=== PATIENT | female | born 1940 | race Caucasian/White ===

== ENCOUNTER 2019-04-06 17:46 | Emergency (ER) | payer MEDICARE, MEDICAID ==
[~2019-04-06] VITALS: Ht 152 cm; Wt 59.0 kg
--- NOTE | 2019-04-06 18:02 | ED Fall/Injury ---
General Stated Complaint: FALL Source: patient, EMS Exam Limitations: no limitations History of Present Illness Date Seen by Provider: Apr 06, 2019 Time Seen by Provider: 18:00 Initial Comments To ER per EMS from the [facility] with reports of a fall and subsequent left shoulder elbow and knee pain. She did not hit her head denies any neck pain, denies any chest abdomen or pelvis pain. She has pain in the left shoulder, skin tear over the left elbow and abrasion with swelling to the left knee. She is from [facility], has hemodialysis Thursday Occurred: just prior to arrival Severity: moderate Injuries/Pain Location: upper extremity, lower extremity Context: slipped Loss of Consciousness: no loss of consciousness Associated Symptoms (Fall): Headache Allergies and Home Medications Allergies Coded Allergies: No Known Drug Allergies (Unverified , 04/06/19) Patient Home Medication List Home Medication List Reviewed: Yes Review of Systems Review of Systems Constitutional: see HPI Eyes: No Symptoms Reported Ears, Nose, Mouth, Throat: no symptoms reported Respiratory: no symptoms reported Cardiovascular: no symptoms reported Genitourinary: no symptoms reported Musculoskeletal: see HPI Skin: see HPI Past Ifnfzgi-Zzmxqf-Xttqug Hx Patient Social History Recent Foreign Travel: No Contact w/Someone Who Travel: No Physical Exam Vital Signs Vital Signs - First Documented 04/06/19 17:47 Temp 36.9 Pulse 67 Resp 18 B/P (MAP) 119/58 (78) Pulse Ox 97 Capillary Refill : Height, Weight, BMI Height: '" Weight: lbs. oz. kg; BMI Method: General Appearance: WD/WN, no apparent distress HEENT: PERRL/EOMI, normal ENT inspection, TMs normal Neck: non-tender, full range of motion Respiratory: chest non-tender, lungs clear, normal breath sounds, no respiratory distress, no accessory muscle use Gastrointestinal: normal bowel sounds, non tender, soft Extremities: no calf tenderness, other (Limited range of motion of the left shoulder due to pain. There is no arteriovenous fistula at the anterior aspect of the left upper arm. There is an abrasion/skin tear to the dorsal aspect of the left proximal forearm, abrasion with swelling to the left anterior knee.) Neurologic/Psychiatric: alert, normal mood/affect, oriented x 3 Skin: normal color, warm/dry [place] Coma Score Best Eye Response: (4) Open Spontaneously Best Verbal Response: (5) Oriented Best Motor Response: (6) Obeys Commands [place] Total: 15 Progress/Results/Core Measures Results/Orders My Orders Orders - JOAQUIN PALMER APRN Shoulder, Left, 3 Views (04/06/19 17:57) Elbow, Left, 3 Views (04/06/19 17:57) Knee, Left, 3 Views (04/06/19 17:57) Vital Signs/I&O 04/06/19 17:47 Temp 36.9 Pulse 67 Resp 18 B/P (MAP) 119/58 (78) Pulse Ox 97 Departure Communication (Admissions) I will just place her in a shoulder immobilizer for both the shoulder fracture and the radial head fracture, I will not do a splint for the radial head fracture because this will occlude the arteriovenous fistula which is required for dialysis. Impression Primary Impression: Left radial head fracture Qualified Codes: S52.122A - Displaced fracture of head of left radius, initial encounter for closed fracture Additional Impression: Closed left humeral fracture Qualified Codes: S42.292A - Other displaced fracture of upper end of left humerus, initial encounter for closed fracture Disposition: 01 HOME, SELF-CARE Condition: Stable Departure-Patient Inst. Decision time for Depature: 18:58 Referrals: CALVIN TINOCO BRIAN J MD OGDEN,JGINESH DIGGS,SHEMAR SOLORZANO MD DO Patient Instructions: Elbow Fracture (DC), Shoulder Fracture (DC) Add. Discharge Instructions: 1. Call an orthopedic surgeon of your choosing in the next 2 days to make an appointment to be seen for follow-up within the next 1-2 weeks. Wear the immobilizer at all times except when showering. Scripts Hydrocodone/Acetaminophen ([place] 5-325 Tablet) 1 Each Tablet 1 TAB PO Q6H for Pain MDD 10 TABS for 7 Days, #14 TAB Prov: JOAQUIN PALMER APRN 04/06/19 JOAQUIN PALMER APRN Apr 06, 2019 18:02
--- NOTE | 2019-04-06 18:18 | NUR ---
PT IS DIALYSIS PT AND FISTULA IS IN L ARM
--- NOTE | 2019-04-06 18:46 | Diagnostic Imaging Report ---
EXAM: KNEE, LEFT, 3 VIEWS INDICATION: Fall. Left knee pain. COMPARISON: None. FINDINGS: Demineralization. No fracture or malalignment. No left knee joint effusion. Mild tricompartmental degenerative changes in the left knee. Surgical clips in the posterior medial left thigh. Vascular calcifications. IMPRESSION: Mild tricompartmental degenerative changes in the left knee. No acute radiographic findings. Dictated by: Dictated on workstation # [id number]
--- NOTE | 2019-04-06 18:47 | Diagnostic Imaging Report ---
PATIENT HISTORY: Fall, left shoulder pain. TECHNIQUE: Three views of the left shoulder. COMPARISON: None. FINDINGS: There is a comminuted fracture of the left humeral neck and head. There is approximately 1 cm of impaction at the neck of the humerus with mild anterior displacement. The fracture extends through the greater tuberosity, with approximately 8 mm of displacement. The glenohumeral alignment appears normal. There are mild degenerative changes in the acromioclavicular joint, with subacromial spurring. IMPRESSION: 1. Comminuted, mildly displaced fracture of the proximal left humerus extending into the greater tuberosity as described above. Dictated by: Dictated on workstation # [id number]
--- NOTE | 2019-04-06 18:49 | Diagnostic Imaging Report ---
EXAM: ELBOW, LEFT, THREE VIEWS. INDICATION: Fall. Left elbow pain. COMPARISON: None. FINDINGS: Demineralization. Moderate degenerative changes in the left elbow. Examination is limited by non-standard positioning. There appears to be an avulsed fragment from the posterior left radial head. No other fractures are identified. IMPRESSION: Avulsion fragment involving the left radial head posteriorly. No other fracture is identified. Dictated by: Dictated on workstation # [id number]
[2019-04-06] MEDS ORDERED: HYDROcodone/APAP 5 MG/325 MG (LORTAB) TAB PO ONE (19:00)
[2019-04-06] MEDS ORDERED: HYDR-4226 PO (19:02)
--- NOTE | 2019-04-06 19:12 | NUR ---
REPORT TO JULIANNE WILLETT
[2019-04-06] MEDS ORDERED: ONDANSETRON 4 MG (ZOFRAN) ORAL DISSOLVE TAB PO ONE (19:15)
[2019-04-06 19:33] VITALS: BP 115/55
== END 2019-04-06 19:35 | disposition home or self-care (01) ==
LOC: EDUNIT# 17:54 → ER 17:56
DX: S52.122A Displaced fracture of head of left radius, initial encounter for closed fracture (principal); S42.292A Other displaced fracture of upper end of left humerus, initial encounter for closed fracture; S80.212A Abrasion, left knee, initial encounter; R40.2142 Coma scale, eyes open, spontaneous, at arrival to emergency department; R40.2252 Coma scale, best verbal response, oriented, at arrival to emergency department; R40.2362 Coma scale, best motor response, obeys commands, at arrival to emergency department; W01.0XXA Fall on same level from slipping, tripping and stumbling without subsequent striking against object, initial encounter; Y92.59 Other trade areas as the place of occurrence of the external cause
CPT/HCPCS: 73030; 73080; 73562